=== PATIENT | female | born 1990 | race Caucasian/White ===

== ENCOUNTER 2019-05-16 11:30 | Emergency (ER) | payer BC, SELFPAY ==
[2019-05-16 11:33] VITALS: BP 147/84; PULSE 71; RESP 20; TEMP 36.5; O2SAT 97
--- NOTE | 2019-05-16 11:56 | ED.GENADUL_ITS ---
Discharge Plan Disposition Patient Disposition: HOME Condition: Stable Discharge Details Chief Complaint: DentalOral Clinical Impression: Odontalgia Primary Care Provider: Porsha Campo ED Provider: Osvaldo Quintero Home Meds and New Rx's Prescriptions: New clindamycin HCl 300 mg capsule 300 mg PO QID 7 Days Qty: 28 RF: 0 tramadol [Ultram] 50 mg tablet 50 mg PO Q6H PRN (Reason: pain) Qty: 7 RF: 0 No Action acetaminophen [Tylenol] 325 MG tablet 650 mg PO PRN PRNRF: 0 Discharge Instructions Instructions: Toothache (ED) Additional Instructions: Please follow-up with dentistry for recheck this week as planned. Take antibiotics as prescribed. I recommend you take an [id number] probiotic once daily while on this medication. May use the provided tramadol if needed for severe breakthrough pain. May continue Tylenol 650 mg every 6 hours, as well as ibuprofen 600 mg every 6-8 hours for pain. Return for worsening pain, development of swelling or difficulty swallowing, or any other acute concerns. Medical Decision Making 28-year-old female presents with left-sided dental pain. She is a history of previous dental extraction. She has few subtle dental caries and tenderness of the second and third molars on the left maxilla. No fluctuance appreciated. Consented for anesthesia with dental block and infraorbital and superior alveolar dental blocks were performed. Patient to be placed on clindamycin given her allergy profile, for antibiotic coverage. She will follow-up with dentistry. Discussed with her that cannot exclude TMJ syndrome, but seems more consistent with apical tooth infection. Given the severity of pain, patient given a small number of Ultram. She is consented for the use of the mild narcotic. Stable and improving, appropriate for outpatient management with follow-up in dentistry. HPI General Mode of arrival: ambulatory . Date/Time Provider Initiated Documentation: 05/16/19 11:30 . Limitations to Documentation: no limitations . Information obtained by: patient and family . History of Present Illness 28 year old F presents to the emergency department with the chief complaint of Left jaw pain, described as moderate and similar to prior episodes, Quality is described as constant, and is localized to the left. Patient reports no radiation. Patient started experiencing this hour(s) and it has been constant. No relieving factors improve symptom(s), No exacerbating factors reported . Patient notes other (No change to voice, no drooling). Related Data Home Medications Medication Instructions Recorded Confirmed acetaminophen [Tylenol] 650 mg PO PRN PRN 12/20/12 05/16/19 clindamycin HCl 300 mg PO QID 7 Days #28 cap 05/16/19 tramadol [Ultram] 50 mg PO Q6H PRN #7 tab 05/16/19 Previous Rx's Medication Instructions Recorded clindamycin HCl 300 mg PO QID 7 Days #28 cap 05/16/19 tramadol [Ultram] 50 mg PO Q6H PRN #7 tab 05/16/19 Allergies Allergy/AdvReac Type Severity Reaction Status Date / Time amoxicillin [Amoxicillin] Allergy Severe Swelling/Ed Unverified 05/16/19 11:35 hill azithromycin Allergy Severe Swelling/Ed Unverified 05/16/19 11:35 hill Penicillins AdvReac Nausea Unverified 05/16/19 11:35 General Stated Complaint: DentalOral GIOVANNI: 4 Review of Systems Narrative: 6 systems reviewed and otherwise negative PFSH Social History Smoking/Tobacco Use Status: Current-Occasional Tobacco Type: cigarettes Alcohol Intake: never Drug use: Never Substance use type: does not use Do you feel safe at home: Yes Do you feel safe in your relationship?: Yes Exam Narrative Exam Narrative: GEN: awake, alert, oriented 3. Pleasant, well groomed, interactive. HEAD: Normocephalic, atraumatic ENT: Mucous membranes moist, oropharynx with few dental caries, tenderness overlying the second and third molars left maxilla, no buccal or lingual fluctuance, External ear exam unremarkable EYES: PERRL, EOMI NECK: Full ROM, no ARJUN, no menigismus EXT: Full ROM, no edema, no rash Neuro: Grossly normal neurologic exam, conversant, interactive. Psych: Speech fluent, thoughts congruent, affect normal Course Vital Signs Vital signs: Vital Signs Temperature 36.5 C 05/16/19 11:33 Pulse 71 05/16/19 11:33 Respiratory Rate 05/16/19 11:33 Blood Pressure 147/84 H 05/16/19 11:33 Pulse Oximetry 97 05/16/19 11:33 Temperature 36.5 C 05/16/19 11:33 Temperature Source Skin 05/16/19 11:33 Pulse 71 05/16/19 11:33 Respiratory Rate 05/16/19 11:33 Blood Pressure 147/84 H 05/16/19 11:33 Blood Pressure Position Sitting 05/16/19 11:33 Pulse Oximetry 97 05/16/19 11:33 Oxygen Delivery Method Room Air 05/16/19 11:33 Oxygen Flow Rate 0 05/16/19 11:33 Pain Level 10 05/16/19 11:33 Procedures Nerve Block Nerve Block 1: Local Anesthetic: Lidocaine 1% Intraoral Nerve Block: superior alveolar Procedure Successful: Yes Patient Tolerated Procedure: well
[2019-05-16 12:10] VITALS: BP 147/84; PULSE 71; RESP 20; TEMP 36.5; O2SAT 97
== END 2019-05-16 12:08 | disposition home or self-care (01) ==
PROVIDERS: Emergency Provider Emergency Medicine; PCP Nurse Practitioner
DX: K08.89 Other specified disorders of teeth and supporting structures (principal)
CPT/HCPCS: 64400; 99283